=== PATIENT | female | born 1950 | race Hispanic/Latino ===

== ENCOUNTER 2017-07-27 11:15 | Day surgery (SDC) | payer MEDICARE, OTHER ==
[2017-07-26 08:21] VITALS: BMI 19.7
[2017-07-27 12:36] VITALS: RESP 18; TEMP 97.9
[2017-07-27 13:56] LABS: BASO # 0.03 K/mm3 (0.0-2.0); BASO % 0.5 % (0.0-3.0); EOS # 0.1 (0.0-0.7); EOS % 1.2 % (1.5-5.0); GRAN # 2.94 (1.4-6.5); GRAN % 51.4 % (50.0-68.0); HEMATOCRIT 34.4 % (36.0-48.0); LYMPH # 1.9 (1.2-3.4); LYMPH % 32.8 % (22.0-35.0); MEAN CELL VOLUME 95.6 fl (80.0-105.0); MEAN CORPUSCULAR HEMOGLOBIN 32.5 pg (25.0-35.0); MEAN PLATELET VOLUME 10.1 fl (7.0-11.0); MONO # 0.8 (0.1-0.6); MONO % 14.1 % (1.0-6.0); RED CELL DISTRIBUTION WIDTH 14.6 % (11.5-14.5); WHITE BLOOD COUNT 5.7 10^3/ul (4.5-11.0)
[2017-07-27 14:04] LABS: BLOOD UREA NITROGEN 14 mg/dL (7-21); CALCIUM 10.1 mg/dL (8.4-10.5); CARBON DIOXIDE 27 mmol/L (21-33); CHLORIDE 103 mmol/L (98-107); GFR AFRICAN-AMERICAN > 60; GLUCOSE,RANDOM 94 mg/dL (70-110); POTASSIUM 3.8 mmol/L (3.6-5.0); SODIUM 142 mmol/L (132-148)
[2017-07-27 14:05] LABS: INR 1.06 (0.93-1.08); PARTIAL THROMBOPLASTIN TIME 28.1 Seconds (23.7-30.8)
[2017-07-27] MEDS ORDERED: Lidocaine 2% Inj (20ml) ONE (15:01)
[2017-07-27] MEDS ORDERED: Midazolam 2 MG/2 ML VIAL ONE (15:33)
[2017-07-27 17:22] VITALS: O2SAT 96
[2017-07-27] MEDS ORDERED: Oxycodone/Acetaminophen 5/325 mg Tab PO PRN (18:08)
[2017-07-27] MEDS ORDERED: Sodium Chloride 0.45% 1,000 ML IV SCH (18:15)
[2017-07-27 18:25] VITALS: BP 123/70; PULSE 74
--- NOTE | 2017-07-27 20:20 | VASCULAR ---
PROCEDURE: Ultrasound and fluoroscopic right internal jugular venous access port. CLINICAL HISTORY: Metastatic lung carcinoma.Venous port for chemotherapy. PHYSICIAN(S): Michelet Watson M.D. TECHNIQUE: The relative risks and indications of the procedure were explained to the patient and her and consent obtained. The patient was placed supine on the arteriogram table and the right neck and chest prepped and draped in the usual sterile fashion. Conscious sedation monitoring was provided throughout the procedure by a nurse. Antibiotics were given prior to the procedure. Under direct ultrasound guidance, the right internal jugular vein was punctured with a micro-puncture set. A 0.035 angled Glidewire was advanced into the IVC. A 4 cm incision was made below the right clavicle and the pocket blunted dissected. A 8 K[place] single-lumen catheter, 27 cm long, was advanced to the SVC/RA junction. The catheter was trimmed and attached to the port. The port aspirates and injects easily. The port was placed in the pocket and closed in 2 layers. The patient tolerated the procedure well. IMPRESSION: Ultrasound and fluoroscopically placed right internal jugular venous access port.
== END 2017-07-27 18:20 | disposition home or self-care (01) ==
LOC: SDSVAS 11:15
PROVIDERS: ATTEND Radiology Vascular & Interventional Radiology
DX: C34.90 Malignant neoplasm of unspecified part of unspecified bronchus or lung (principal); Z88.6 Allergy status to analgesic agent; Z88.2 Allergy status to sulfonamides
CPT/HCPCS: 36415; 36561; 76937; 77001; 80048; 85025; 85610; 85730; 99152; C1769; C1788; J0690; J1644; J2250; J2405; J3010; J7030